=== PATIENT | male | born 1960 | race African-American/Black ===

== ENCOUNTER 2018-11-26 12:46 | Emergency (ER) | payer BC ==
[2018-11-26] MEDS ORDERED: SODIUM CHLORIDE 0.9% 1,000 ML IV STA ×2 (12:57→14:42)
[2018-11-26 13:00] VITALS: TEMP 98.1
--- NOTE | 2018-11-26 13:14 | ED ---
Syncope HPI - General Chief Complaint: Syncope Stated Complaint: Syncope Time Seen by Provider: 11/26/18 12:57 Source: patient, EMS, RN notes reviewed, old records reviewed Mode of arrival: EMS Limitations: no limitations - History of Present Illness Initial Comments: This is a 50-year-old male the ER for evaluation. Patient resents today for evaluation regarding syncopal event. Patient syncopal event prior to arriving in the ER today. 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 Patient states he usually does drink water and eat breakfast in the morning today he just had his coffee. He was running late. Patient denies any headache chest pain or shortness of breath. Currently is asymptomatic. Patient has history of high blood pressure MD Complaint: loss of consciousness -: minutes(s) Prodromal Symptoms: lightheaded, diaphoresis -: second(s) Witnessed: yes - by bystander Injuries Sustained Associated with Event: None Current Symptoms: none History: other (none) Context: other (while standing giving a levture) Treatments Prior to Arrival: IV fluids - Related Data Home Medications Medication Instructions Recorded Confirmed Atorvastatin [Lipitor] 20 mg PO HS 11/26/18 11/26/18 Lisinopril [Zestril] 10 mg PO DAILY 11/26/18 11/26/18 Multivitamins, Thera [Multivitamin 1 tab PO DAILY 11/26/18 11/26/18 (formulary)] Allergies Allergy/AdvReac Type Severity Reaction Status Date / Time No Known Allergies Allergy Verified 11/26/18 13:18 Review of Systems ROS Statement: Those systems with pertinent positive or pertinent negative responses have been documented in the HPI. ROS Other: All systems not noted in ROS Statement are negative. Past Medical History Past Medical History: Hypertension History of Any Multi-Drug Resistant Organisms: None Reported Past Surgical History: No Surgical Hx Reported Past Psychological History: No Psychological Hx Reported Smoking Status: Never smoker Past Alcohol Use History: None Reported Past Drug Use History: None Reported General Exam Limitations: no limitations General appearance: alert, in no apparent distress Head exam: Present: atraumatic, normocephalic, normal inspection Eye exam: Present: normal appearance, PERRL, EOMI. Absent: scleral icterus, conjunctival injection, periorbital swelling ENT exam: Present: normal exam, mucous membranes moist Neck exam: Present: normal inspection. Absent: tenderness, meningismus, lymphadenopathy Respiratory exam: Present: normal lung sounds bilaterally. Absent: respiratory distress, wheezes, rales, rhonchi, stridor Cardiovascular Exam: Present: regular rate, normal rhythm, normal heart sounds. Absent: systolic murmur, diastolic murmur, rubs, gallop, clicks GI/Abdominal exam: Present: soft, normal bowel sounds. Absent: distended, tenderness, guarding, rebound, rigid Extremities exam: Present: normal inspection, full ROM, normal capillary refill. Absent: tenderness, pedal edema, joint swelling, calf tenderness Back exam: Present: normal inspection Neurological exam: Present: alert, oriented X3, CN II-XII intact Psychiatric exam: Present: normal affect, normal mood Skin exam: Present: warm, dry, intact, normal color. Absent: rash Course Vital Signs 11/26/18 11/26/18 11/26/18 12:51 13:33 14:46 Temperature 98.1 F Pulse Rate 60 65 67 Respiratory 16 18 18 Rate Blood Pressure 156/96 159/97 171/101 O2 Sat by Pulse 99 100 97 Oximetry - Reevaluation(s) Reevaluation #1: 11/26/18 13:28 Medical record is reviewed Reevaluation #2: 11/26/18 13:29 Patient ambulate freely around the emergency room without significant distress Reevaluation #3: 11/26/18 13:29 Patient continues to deny headache chest pain shortness of breath or abdominal pain EKG Findings - EKG Comments: EKG Findings:: EKG shows sinus bradycardia rate of 59, AK 170, QRS 126, QTc 384 Medical Decision Making - Medical Decision Making 50-year-old male the ER for evaluation, patient is a teacher, 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 Patient without headache or abdominal pain, no chest pain shortness of breath. Patient will be discharged - Lab Data Result diagrams: 11/26/18 13:04 11/26/18 13:04 Lab Results 11/26/18 11/26/18 11/26/18 Range/Units 13:04 13:04 13:04 WBC 8.4 (3.8-10.6) k/uL RBC 5.00 (4.30-5.90) m/uL Hgb 15.9 (13.0-17.5) gm/dL Hct 46.9 (39.0-53.0) % MCV 93.7 (80.0-100.0) fL MCH 31.7 (25.0-35.0) pg MCHC 33.8 (31.0-37.0) g/dL RDW 12.6 (11.5-15.5) % Plt Count 201 (150-450) k/uL Neutrophils % 69 % Lymphocytes % 15 % Monocytes % 7 % Eosinophils % 8 % Basophils % 0 % Neutrophils # 5.7 (1.3-7.7) k/uL Lymphocytes # 1.2 (1.0-4.8) k/uL Monocytes # 0.6 (0-1.0) k/uL Eosinophils # 0.6 (0-0.7) k/uL Basophils # 0.0 (0-0.2) k/uL PT (9.0-12.0) sec INR (<1.2) APTT (22.0-30.0) sec D-Dimer (<0.60) mg/L FEU Sodium 140 (137-145) mmol/L Potassium 5.1 (3.5-5.1) mmol/L Chloride 108 H (98-107) mmol/L Carbon Dioxide 24 (22-30) mmol/L Anion Gap 8 mmol/L BUN 16 (9-20) mg/dL Creatinine 1.32 H (0.66-1.25) mg/dL Est GFR (CKD-EPI)AfAm 69 (>60 ml/min/1.73 sqM) Est GFR (CKD-EPI)NonAf 59 (>60 ml/min/1.73 sqM) Glucose 95 (74-99) mg/dL Calcium 9.2 (8.4-10.2) mg/dL Magnesium 2.0 (1.6-2.3) mg/dL Total Bilirubin 1.3 (0.2-1.3) mg/dL AST 45 (17-59) U/L ALT 37 (21-72) U/L Alkaline Phosphatase 103 (38-126) U/L Total Creatine Kinase 89 (55-170) U/L CK-MB (CK-2) 0.3 (0.0-2.4) ng/mL CK-MB (CK-2) Rel Index 0.3 Troponin I <0.012 (0.000-0.034) ng/mL Total Protein 8.0 (6.3-8.2) g/dL Albumin 4.5 (3.5-5.0) g/dL 11/26/18 Range/Units 13:04 WBC (3.8-10.6) k/uL RBC (4.30-5.90) m/uL Hgb (13.0-17.5) gm/dL Hct (39.0-53.0) % MCV (80.0-100.0) fL MCH (25.0-35.0) pg MCHC (31.0-37.0) g/dL RDW (11.5-15.5) % Plt Count (150-450) k/uL Neutrophils % % Lymphocytes % % Monocytes % % Eosinophils % % Basophils % % Neutrophils # (1.3-7.7) k/uL Lymphocytes # (1.0-4.8) k/uL Monocytes # (0-1.0) k/uL Eosinophils # (0-0.7) k/uL Basophils # (0-0.2) k/uL PT 10.5 (9.0-12.0) sec INR 1.0 (<1.2) APTT 22.5 (22.0-30.0) sec D-Dimer 0.52 (<0.60) mg/L FEU Sodium (137-145) mmol/L Potassium (3.5-5.1) mmol/L Chloride (98-107) mmol/L Carbon Dioxide (22-30) mmol/L Anion Gap mmol/L BUN (9-20) mg/dL Creatinine (0.66-1.25) mg/dL Est GFR (CKD-EPI)AfAm (>60 ml/min/1.73 sqM) Est GFR (CKD-EPI)NonAf (>60 ml/min/1.73 sqM) Glucose (74-99) mg/dL Calcium (8.4-10.2) mg/dL Magnesium (1.6-2.3) mg/dL Total Bilirubin (0.2-1.3) mg/dL AST (17-59) U/L ALT (21-72) U/L Alkaline Phosphatase (38-126) U/L Total Creatine Kinase (55-170) U/L CK-MB (CK-2) (0.0-2.4) ng/mL CK-MB (CK-2) Rel Index Troponin I (0.000-0.034) ng/mL Total Protein (6.3-8.2) g/dL Albumin (3.5-5.0) g/dL - Radiology Data Radiology results: report reviewed (CTA chest is negative for PE), image reviewed Disposition Clinical Impression: Vasovagal syncope Disposition: HOME SELF-CARE Condition: Good Instructions: Syncope (ED) Is patient prescribed a controlled substance at d/c from ED?: No Referrals: Nonstaff,Physician [Primary Care Provider] - 1-2 days
[2018-11-26 13:21] LABS: Basophils % (A) 0 %; Eosinophils # (A) 0.6 k/uL (0-0.7); Eosinophils % (A) 8 %; HCT 46.9 % (39.0-53.0); HGB 15.9 gm/dL (13.0-17.5); Lymphocytes # (A) 1.2 k/uL (1.0-4.8); Lymphocytes % (A) 15 %; MCH 31.7 pg (25.0-35.0); MCHC 33.8 g/dL (31.0-37.0); MCV 93.7 fL (80.0-100.0); Mean Platelet Volume 9.2; Monocytes # (A) 0.6 k/uL (0-1.0); Monocytes % (A) 7 %; Neutrophils # (A) 5.7 k/uL (1.3-7.7); Neutrophils % (A) 69 %; Platelet Count 201 k/uL (150-450); RDW 12.6 % (11.5-15.5); WBC 8.4 k/uL (3.8-10.6)
[2018-11-26 13:30] LABS: Albumin 4.5 g/dL (3.5-5.0); Calcium 9.2 mg/dL (8.4-10.2); Potassium 5.1 mmol/L (3.5-5.1); Total Bilirubin 1.3 mg/dL (0.2-1.3)
[2018-11-26 13:35] VITALS: RESP 18
[2018-11-26 13:39] LABS: D-Dimer 0.52 mg/L FEU (<0.60); Partial Thromboplastin Time 22.5 sec (22.0-30.0); Prothrombin Time 10.5 sec (9.0-12.0)
[2018-11-26 13:46] LABS: Creatine Kinase 89 U/L (55-170)
[2018-11-26 14:00] LABS: Creatine Kinase MB 0.3 ng/mL (0.0-2.4); Troponin I <0.012 ng/mL (0.000-0.034)
[2018-11-26 14:48] VITALS: BP 171/101; PULSE 67
--- NOTE | 2018-11-26 14:48 | CT ---
EXAMINATION TYPE: CT angio chest DATE OF EXAM: 11/26/2018 COMPARISON: NONE HISTORY: Syncope CT DLP: 322.7 mGycm. Automated Exposure Control for Dose Reduction was Utilized. CONTRAST: CTA scan of the thorax is performed with IV Contrast, patient injected with 60 mL of Isovue 370, pulm onary embolism protocol. MIP Images are created on CT scanner and reviewed. FINDINGS: LUNGS: The lungs are grossly clear, there is no concerning parenchymal mass or nodule identified. So me scattered areas of pleural-based scarring are seen. There is no pleural effusion or pneumothorax s een. The tracheobronchial tree is patent. MEDIASTINUM: Timing of the contrast bolus is not ideal. There is preferential opacification of the th oracic aorta. There is mild opacification of the central and segmental pulmonary arteries. There is n o evidence of central pulmonary embolus. Evaluation of the segmental and subsegmental pulmonary arter ies remains equivocal. The ascending and descending thoracic aorta are without evidence of aneurysmal dilatation or narrowing. There is no overt evidence of aortic dissection. Normal three-vessel aortic arch. There are no greater than 1 cm hilar or mediastinal lymph nodes. No cardiomegaly or pericard ial effusion is seen. OTHER: Small hiatal hernia. Limited evaluation of the upper abdomen is unremarkable. Osseous structur es are without evidence of acute findings. The origins of the celiac trunk and superior mesenteric ar ani within normal limits. IMPRESSION: 1. No central pulmonary artery embolism. Secondary to timing of the contrast bolus, evaluation of seg mental and subsegmental pulmonary embolism remains equivocal. 2. Small hiatal hernia.
== END 2018-11-26 14:55 | disposition home or self-care (01) ==
LOC: EC 12:46
DX: R55 Syncope and collapse (principal); R79.89 Other specified abnormal findings of blood chemistry; I10 Essential (primary) hypertension; Z79.899 Other long term (current) drug therapy; Z53.8 Procedure and treatment not carried out for other reasons
CPT/HCPCS: 36415; 93005; 85379; 80053; 82550; 82553; 83735; 84484; 85025; 85610; 85730; 71275; 99285; 96360; Q9967